=== PATIENT | male | born 1950 | race Caucasian/White ===

== ENCOUNTER 2020-04-08 05:38 | Outpatient (RCR) | payer MEDICARE ==
[~2020-04-08] VITALS: Ht 197 cm; Wt 90.9 kg
== END 2020-04-08 15:37 | disposition home or self-care (01) ==
LOC: PREOP 05:38
PROVIDERS: ATTEND Internal Medicine
DX: Z01.818 Encounter for other preprocedural examination (principal); Z11.59 Encounter for screening for other viral diseases
CPT/HCPCS: 87635

== ENCOUNTER 2020-04-11 07:41 | Day surgery (SDC) | payer MEDICARE ==
--- NOTE | 2020-04-01 06:01 | HISTORY AND PHYSICAL ---
DATE OF SERVICE: COLONOSCOPY HISTORY AND PHYSICAL HISTORY OF PRESENT ILLNESS: The patient is a 69-year-old white male seen for yearly wellness evaluation in the office on 03/19/2020. He reports that he has been having increased right shoulder pain with a likely past history of rotator cuff tear in his 40s. He did not undergo formal therapy. He has noticed some mild increase in discomfort with any overhead work and has had decrease in arm abduction since the time of his injury. It does not generally keep him up at night. He had one other screening colonoscopy 10 years ago and is here for his second colonoscopy. He did not have evidence for neoplasia at that time and is not aware of any family history for colon cancer. 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 For generalized aches and pains he does take some Naprosyn on occasion, but is on no regular prescription medication. PHYSICAL EXAMINATION: GENERAL: Reveals a white male who appears to be in no acute distress. VITAL SIGNS: Blood pressure 122/76, weight 200.8 pounds. HEENT: Unremarkable. NECK: Revealed no JVD, adenopathy or bruits. CHEST: Clear to auscultation. CARDIOVASCULAR: Revealed a regular rate and rhythm without murmur, S3 or S4. ABDOMEN: Soft, supple without mass, organomegaly or tenderness. He does have some mild atrophy of the right trapezius. He has some discomfort on range of motion at 90 degrees with decreased range of motion on abduction of the right shoulder. EXTREMITIES: Reveal no cyanosis, clubbing or edema, although he chronically does have some edema if he does not wear compression garments and had them on during the interview. LABORATORY DATA: Blood tests were reviewed with the patient. Chemistry panel was normal and lipid panel was ideal with total cholesterol of 164, HDL level of 45, triglyceride level of 65 and LDL of 106. PSA remains relatively low at 1.17. ASSESSMENT AND PLAN: 1. The patient was set up for screening colonoscopy. Prep instructions were given. 2. Right rotator cuff tear. His son is a physical therapist was advised to have son guide him through some formal physical therapy exercises. A therapy band related exercise, which he is familiar with. We will see him back for yearly screening with yearly wellness evaluation. Otherwise, he will continue getting yearly influenza vaccination. Job ID: [id number] DocumentID: [id number] Dictated Date: 03/19/2020 18:45:21 [facility] Date: 03/19/2020 19:19:08 Dictated By: MICHAEL CARRASCO MD
[2020-04-11] VITALS (11 sets, daily range): BP systolic 117–135; BP diastolic 69–89
[~2020-04-11] VITALS: Ht 197 cm; Wt 90.9 kg
[2020-04-11] MEDS ORDERED: D5 LR IV SOLUTION 1,000 ML IV ONE (07:43)
[2020-04-11] MEDS ORDERED: D5 LR IV SOLUTION 1,000 ML IV STA (07:44)
--- OUTSIDE RECORDS SUMMARY | 2020-04-11 07:44 | XMS REPORT | Continuity of Care Document ---
Author Organization Unknown Address Unknown Phone Unavailable Allergies Active Description Code Type Severity Reaction Onset Reported/Identified Relationship to Patient Clinical Status Yes No Known Drug Allergies [id number] Drug Allergy Unknown N/A 02/26/2011 Medications There is no data. Problems There is no data. Procedures There is no data. Results Test Result Range Coronavirus SARS-CoV-2 SO 2018 - 0 08:38 Coronavirus Ab [Units/volume] in Serum Negative Negative Encounters ACCT No. Visit Date/Time Discharge Status Pt. Type Provider Facility Loc./Unit Complaint [id number] 04/08/2020 05:38:00 020 15:37:00 DIS Outpatient MICHAEL CARRASCO MD [facility] PREOP COLONOSCOPY [id number] 04/11/2020 08:30:00 P EN Preadmit MICHAEL CARRASCO MD [facility] ENDO SCREENING
[2020-04-11] MEDS ORDERED: LIDOCAINE JELLY 2% 6 ML SYRINGE MM PRN (07:45)
[2020-04-11] MEDS ORDERED: fentaNYL INJECTION 100 MCG/2 ML AMP IVP ONE (07:45)
[2020-04-11] MEDS ORDERED: MIDAZOLAM 5 MG/5 ML (VERSED) VIAL IV PRN (07:45)
--- NOTE | 2020-04-11 08:03 | Pre-Op Note & Conscious Sedat ---
Pre-Operative Progress Note H&P Reviewed The H&P was reviewed, patient examined and no changes noted. Date H&P Reviewed: Apr 11, 2020 Time H&P Reviewed: 08:00 Conscious Sedation Pre-Proced ASA Score 1 For ASA 3 and 4: Consider anesthesia and medical clearance. Also, for patients with a history of failed moderate sedation consider anesthesia. Airway Lungs Heart ASA score ASA 1: a normal healthy patient ASA 2: a patient with a mild systemic disease (mid diabetes, controlled hypertension, obesity ASA 3: a patient with a severe systemic disease that limits activity (angina, COPD, prior Myocardial infarction) ASA 4: a patient with an incapacitating disease that is a constant threat to life (CHF, renal failure) ASA 5: a moribund patient not expected to survive 24 hrs. (ruptured aneurysm) ASA 6: a declared brain- patient whose organs are being harvested. For emergent operations, add the letter E after the classification Mallampati Classification Grade 1 Sedation Plan Analgesia, Amnesia, Plan communicated to team members, Discussed options with patient/fam, Discussed risks with patient/fam The patient is an appropriate candidate to undergo the planned procedure, sedation, and anesthesia. The patient immediately re-assessed prior to indication. MICHAEL CARRASCO MD Apr 11, 2020 08:02
[2020-04-11] MEDS ORDERED: MIDAZOLAM 5 MG/5 ML (VERSED) VIAL ONE (08:04)
[2020-04-11] MEDS ORDERED: fentaNYL INJECTION 100 MCG/2 ML AMP ONE (08:04)
[2020-04-11] MEDS ORDERED: LIDOCAINE JELLY 2% 6 ML SYRINGE ONE (08:04)
[2020-04-11] MEDS ORDERED: SIMETHICONE 40 MG/0.6 ML (MYLICON DROPS) 30 ML BTL ONE (08:30)
--- NOTE | 2020-04-11 09:31 | OPERATIVE REPORT ---
DATE OF SERVICE: 04/11/2020 COLONOSCOPY SUMMARY INDICATION FOR THE PROCEDURE: Screening. DESCRIPTION OF PROCEDURE: The patient was placed in the left lateral decubitus position. Prior to undergoing colonoscopy, digital rectal evaluation was performed. Anal sphincter tone was normal and the perianal reflexes were intact. Prostate is mildly enlarged, flat, anodular and nontender to digital inspection. No abnormalities were noted on digital inspection of anal canal or distal rectal vault. The colonoscope was then inserted into the rectum and under direct visualization advanced to cecum. The cecum was identified by the identification of the ileocecal valve and cecal strap. Photographic documentation was obtained. Careful inspection was made as colonoscope withdrawn. The quality of prep was good. The patient tolerated the procedure well. FINDINGS: Present in the mid rectum was a diminutive 2 x 3 mm polyp, which was photographed and biopsied and ablated and submitted for histopathology. The remainder of the rectum was unremarkable. The sigmoid colon, descending colon, transverse colon, ascending colon and cecum were normal as well. No evidence for diverticular disease or further evidence for polyps were noted. ASSESSMENT: One diminutive polyp was removed from the mid rectum. This was an otherwise unremarkable colonoscopy to the cecum. It is debatable as to whether screening colonoscopy will be recommended in the future. Digital evaluation of the prostate was compatible with mild benign prostatic hypertrophy. Job ID: [id number] DocumentID: [id number] Dictated Date: 04/11/2020 09:04:46 [place] Date: 04/11/2020 09:31:05 Dictated By: MICHAEL CARRASCO MD MTDD
== END 2020-04-11 09:25 | disposition home or self-care (01) ==
LOC: ENDO 07:41
PROVIDERS: ATTEND Internal Medicine
DX: Z12.11 Encounter for screening for malignant neoplasm of colon (principal); K63.5 Polyp of colon
CPT/HCPCS: 88305